=== PATIENT | male | born 1965 | race Caucasian/White ===

== ENCOUNTER 2024-04-12 14:47 | Emergency (ER) | payer MEDICAID, OTHER ==
[~2024-04-12] VITALS: Ht 165.1 cm; Wt 79.0 kg
[~2024-04-12 14:47] MED LIST: INSU100I28 SQ; LORA-250 MT; METF-1150 MT
[2024-04-12 14:52] VITALS: O2SAT 95
[2024-04-12] MEDS: SODIUM CHLORIDE 0.9% 1,000 ML IV ONE ×2 (15:50→17:00)
[2024-04-12 15:51] LABS: BG BASE EXCESS -1.1 mmol/L (-2.0-3.0); BG CARBOXYHEMOGLOBIN 1.8 % (0.5-1.5); BG DEOXYHEMOGLOBIN 7.6 % (0.0-5.0); BG HCO3 ACT 24.4 mmol/L (21.0-28.0); BG METHEMOGLOBIN 0.3 % (0.5-1.5); BG OXYGEN SATURATION 92.2 % (94.0-98.0); BG OXYHEMOGLOBIN 90.3 % (94.0-98.0); BG PCO2 43.9 mmHg (35.0-48.0); BG PH 7.363 (7.350-7.450); BG PO2 70.8 mmHg (83.0-108.0); BG SAMPLE SITE RIGHT RADIAL; BG TOTAL HEMOGLOBIN 13.8 g/dL (13.5-17.5); BG VENT MODE ROOM AIR
[2024-04-12 16:13] LABS: CLARITY URINE CLEAR (CLEAR); COLOR URINE YELLOW (YELLOW); GLUCOSE URINE 3+ (NEGATIVE); KETONES URINE NEGATIVE (NEGATIVE); LEUKOCYTE ESTERASE URINE NEGATIVE (NEGATIVE); NITRITE URINE NEGATIVE (NEGATIVE); OCCULT BLOOD URINE NEGATIVE (NEGATIVE); PH URINE 5.5 (4.5-8.0); PROTEIN URINE NEGATIVE (NEGATIVE); SPECIFIC GRAVITY URINE 1.029 (1.005-1.030); UROBILINOGEN URINE 0.2 E.U./dL (0.2-1.0)
[2024-04-12 16:25] LABS: CHLORIDE 97 mEq/L (98-107); POTASSIUM 4.1 mEq/L (3.5-5.1); SODIUM 134 mEq/L (136-145)
[2024-04-12 16:26] LABS: CARBON DIOXIDE 24 mEq/L (21-32)
[2024-04-12 16:27] LABS: CALCIUM 9.2 mg/dL (8.7-10.4)
[2024-04-12 16:30] LABS: BASOPHILS % 0.7 % (0.0-2.0); EOSINOPHILS % 1.5 % (0.0-5.0); HEMATOCRIT. 41.1 % (42.0-52.0); HEMOGLOBIN. 13.2 g/dL (14.0-18.0); LYMPHOCYTES % 42.7 % (20.0-50.0); MEAN CORPUSCULAR HEMOGLOBIN 29.8 pg (28.0-32.0); MEAN CORPUSCULAR HGB CONC 32.2 g/dL (31.0-37.0); MEAN CORPUSCULAR VOLUME 92.3 fL (80.0-94.0); MEAN PLATELET VOLUME 7.6 fl (7.4-10.4); MONOCYTES % 8.3 % (2.0-8.0); NEUTROPHILS % 46.8 % (40.0-76.0); PLATELET 277 x1000/uL (130-400); RED BLOOD CELL COUNT 4.45 mill/uL (4.7-6.1); RED CELL DISTRIBUTION WIDTH 14.9 % (11.6-14.6)
[2024-04-12 16:31] LABS: CREATININE 1.1 mg/dL (0.6-1.3)
[2024-04-12 16:32] LABS: ETHANOL BLOOD 272 mg/dL (<10); TROPONIN I HIGH SENSITIVITY 4 ng/L (3.0-53); UREA NITROGEN BLOOD 10 mg/dL (9-23)
[2024-04-12 16:43] LABS: GLUCOSE 529 mg/dL (70-105)
[2024-04-12 16:51] LABS: BETA HYDROXYBUTYRATE 0.5 mMol/L (0.0-0.3)
[2024-04-12 18:30] LABS: BACTERIA URINE TRACE; RBC URINE NONE SEEN /hpf (0-2); SQUAMOUS EPITHELIAL CELL URINE FEW /lpf (RARE/1+); WBC URINE 0-2 /hpf (0-2)
[2024-04-12 19:18] VITALS: TEMP 37.00296; O2SAT 98
[2024-04-12 19:23] VITALS: BP 117/62; PULSE 82; RESP 16; TEMP 98.6
[2024-04-12] MEDS ORDERED: INSULIN LISPRO 100 UNITS/ML SUBCUT NR (22:30)
== END 2024-04-12 20:19 | disposition home or self-care (01) ==
LOC: ER 14:47 → EDBEDREQ 15:53 → ER 20:19
DX: F10.129 Alcohol abuse with intoxication, unspecified (principal); E11.65 Type 2 diabetes mellitus with hyperglycemia; I10 Essential (primary) hypertension
CPT/HCPCS: 80048; 81003; 82010; 80320; 82962; 83930; 85025; 84484; 36415; 71045; 70450; 82805; 82375; 93005; 96360; 99285; 36600; J7030; Z7610; G0480